=== PATIENT | female | born 1940 | race Two or more races ===

== ENCOUNTER 2018-05-25 18:59 | Emergency (ER) | payer SELFPAY ==
[~2018-05-25] VITALS: Ht 157.5 cm; Wt 52.3 kg
[2018-05-25 19:12] VITALS: Ht 157.5 cm; Wt 52.3 kg
[2018-05-25] MEDS ORDERED: CAPOTEN12.5 MG PO (19:14)
[2018-05-25] MEDS ORDERED: PRINIVIL20 MG PO (19:32)
[2018-05-25 19:34] LABS: BASOPHILS 0.3 % (0-2); EOSINOPHILS 3.1 % (0-7); HEMATOCRIT 37.4 % (36.0-48.0); HEMOGLOBIN 12.8 g/dL (12-16); IMMATURE GRANULOCYTES 0.3 % (0-5); LYMPHOCYTES 32.9 % (15-50); MCH 30.3 pg (26.0-34.0); MCHC 34.2 g/dL (31.0-37.0); MCV 88.4 fL (80.0-100.0); MEAN PLATELET VOLUME 9.8 fL (7.4-10.4); MONOCYTES 10.1 % (2-11); NEUTROPHILS 53.3 % (40-80); PLATELET COUNT 254 10x3/uL (130-400); RBC 4.23 10x6/uL (4.00-5.40); RDW 12.7 % (11.5-14.5); WBC 6.4 10x3/uL (4.8-10.8)
[2018-05-25 19:46] LABS: INR 0.98 (0.85-1.17); PROTIME 12.6 SECONDS (11.6-15.0)
[2018-05-25 19:47] LABS: APTT 30.3 SECONDS (22.8-39.4)
[2018-05-25 19:53] LABS: ALBUMIN 3.4 g/dL (3.4-5.0); ALKALINE PHOSPHATASE 62 U/L (46-116); ALT (SGPT) 26 U/L (10-68); BILIRUBIN - TOTAL 0.15 mg/dL (0.2-1.3); CALC OSMOLALITY 261 mosm/kg (275-300); CALCIUM 8.6 mg/dL (8.5-10.1); CARBON DIOXIDE 26.3 mmol/L (21.0-32.0); CHLORIDE - SERUM 94 mmol/L (98-107); CREATININE - SERUM 0.6 mg/dL (0.6-1.3); GLUCOSE 102 mg/dL (74-106); POTASSIUM - SERUM 3.9 mmol/L (3.5-5.1); PROTEIN - SERUM 7.2 g/dL (6.4-8.2); SODIUM 130 mmol/L (136-145); UREA NITROGEN 16 mg/dL (7-18); eGFR NON AFRICAN AMERICAN > 90 mL/min (90-120)
[2018-05-25 20:08] LABS: CKMB 0.8 U/L (0.0-3.6); CREATINE KINASE 48 UL (21-215); PRO BNP 80 pg/mL (0-450); THYROID STIMULATING HORMONE 2.95 uIU/mL (0.36-3.74)
[2018-05-25 20:24] LABS: TROPONIN-I < 0.017 ng/mL (0.000-0.060)
[2018-05-25 20:51] VITALS: BP 139/54
== END 2018-05-25 20:51 | disposition home or self-care (01) ==
LOC: D.ER 18:59
PROVIDERS: Family Medicine
DX: I10 Essential (primary) hypertension (principal); R51 Headache; M54.9 Dorsalgia, unspecified; M54.2 Cervicalgia